=== PATIENT | female | born 1995 | race Caucasian/White ===

== ENCOUNTER 2017-07-01 19:30 | Emergency (ER) | payer OTHER ==
[2017-07-01 19:48] VITALS: BP 131/81
--- NOTE | 2017-07-01 20:05 | UC ---
Nausea/Vomiting/Diarrhea HPI - HPI Summary HPI Summary: Pt presents with vomiting, generalized belly ache, and nausea since 0300 this morning. She is confident that she is not as the last time she engaged in sexual activity was 5 months ago and she is on control. She mentions that she ate some "questionable sweet potatoes" last night and wonders if this is food poisoning. She has been drinking mathew josiah and water all day with a few bites of crackers, but does not feel hungry. She has not vomited since this morning. Denies fever, chills, SOB, chest pain, diarrhea, pelvic pain, vaginal discharge/bleeding, dysuria, hematuria, or flank pain. - History of Current Complaint Chief Complaint: UCGI Stated Complaint: VOMITING,COUGH Time Seen by Provider: 07/01/17 20:04 Hx Obtained From: Patient Hx Last Menstrual Period: ended 2 days ago Onset/Duration: Sudden Onset Severity Initially: Mild Severity Currently: Mild Pain Intensity: 4 Pain Scale Used: 0-10 Numeric Location: Diffuse Character: Cramping Aggravating Factor(s): Nothing Alleviating Factor(s): Nothing Nausea/Vomiting Presence: Nauseated, Vomiting - Allergies/Home Medications Allergies/Adverse Reactions: Allergies Allergy/AdvReac Type Severity Reaction Status Date / Time No Known Allergies Allergy Verified 07/01/17 19:48 PMH/Surg Hx/FS Hx/Imm Hx Previously Healthy: Yes - Surgical History Surgical History: Yes Surgery Procedure, Year, and Place: [place] teeth - Family History Known Family History: Positive: Unknown - Social History Occupation: Student Lives: Dormitory/Roommates Alcohol Use: Occasionally Substance Use Type: None Smoking Status (MU): Never Smoked Tobacco Review of Systems Constitutional: Negative Skin: Negative Respiratory: Negative Cardiovascular: Negative Gastrointestinal: Abdominal Pain, Vomiting, Nausea Genitourinary: Negative Neurological: Negative Psychological: Negative All Other Systems Reviewed And Are Negative: Yes Physical Exam Triage Information Reviewed: Yes Appearance: No Pain Distress, Well-Nourished, Ill-Appearing Vital Signs: Initial Vital Signs Temp 96.8 F 07/01/17 19:45 Pulse 103 07/01/17 19:45 Resp 12 07/01/17 19:45 BP 131/81 07/01/17 19:45 Pulse Ox 97 07/01/17 19:45 Vital Signs Reviewed: Yes Neck: Positive: Supple, Nontender, No Lymphadenopathy Respiratory: Positive: Lungs clear, Normal breath sounds, No respiratory distress, No accessory muscle use Cardiovascular: Positive: RRR, No Murmur, Pulses Normal Abdomen Description: Positive: No Organomegaly, Soft, Other: - Generalized discomfort with palpation in all quadrants. Negative psoas, ob. Negative: CVA Tenderness (R), CVA Tenderness (L), Distended - Generalized discomfort with palpation in all quadrants. Negative psoas, obturator, and heel strike., Guarding Bowel Sounds: Positive: Present Neurological: Positive: Alert. Negative: Fatigued Psychological: Positive: Age Appropriate Behavior Skin: Negative: rashes, significant lesion(s) Naus/Vom/Diarrhea Course/Dx - Course Course Of Treatment: Low suspicion for appendicits. Suspect influenza vs gastroenteritis. Advised to rest, drink fluids, advance diet as tolerated and may take zofran prn. If her symptoms persist or worsen - go to the ED. - Differential Dx/Diagnosis Provider Diagnoses: Viral gastroenteritis Condition At Discharge: Stable Discharge - Discharge Plan Condition: Stable Disposition: HOME Prescriptions: Ondansetron TAB* [Zofran 4 MG Tab*] 4 mg PO Q6H PRN #12 tab PRN Reason: Nausea Patient Education Materials: Gastroenteritis (DC) Referrals: [facility],Daryn [Primary Care Provider] - Additional Instructions: If you develop a fever, shortness of breath, chest pain, new or worsening symptoms - please call your PCP or go to the ED. 1) Rest and drink plenty of fluids 2) Advance diet as tolerated. Start with bananas, rice, applesauce, toast, and/ or broth. 3) If your symptoms worsen or persist greater than 2 days or if your abdominal worsens - please go to the ER.
[2017-07-01] MEDS ORDERED: Ondansetron ODT TAB* 4 MG PO ONE (20:11)
== END 2017-07-01 20:25 | disposition home or self-care (01) ==
LOC: UCEAST 19:30
DX: A08.4 Viral intestinal infection, unspecified (principal)
CPT/HCPCS: 81003; 99202; A9270-GY; G0463